=== PATIENT | female | born 1965 | race Caucasian/White ===

== ENCOUNTER 2020-03-15 13:28 | Emergency (ER) | payer BC, OTHER ==
--- NOTE | 2020-03-15 14:02 | UC ---
Telehealth HPI HPI Summary: 55 y/o female with cold symptoms over past 7 days dry cough , nasal congestion , chills, she has improved for the past 2 days and is asymptomatic requesting a note to go back to work no chest pain / no sob UC Telehealth PMH Previously Healthy: Yes Endocrine/Hematology History: Denies: Hx Diabetes Cardiovascular History: Denies: Hx Hypertension, Hx Pacemaker/ICD History: Denies: Hx Renal Disease Sensory History: Denies: Hx Hearing Aid Psychiatric History: Denies: Hx Panic Disorder - Surgical History Surgery Procedure, Year, and Place: tubal ligation. BILATERAL BREAST BIOPSIES - Family History Known Family History: Positive: Hypertension - Social History Alcohol Use: Daily Substance Use Type: Reports: None Smoking Status (MU): Light Every Day Tobacco [facility] All Other Systems Reviewed And Are Negative: Yes Positive: Chills, Fatigue. Negative: Fever Eyes: Negative Positive: Nasal Discharge. Negative: Sore Throat Cardiovascular: Negative Negative: Palpitations, Chest Pain Positive: Cough. Negative: Shortness Of Breath Telehealth PE Telehealth Physical Exam: no physical exam / no vitals since the pt. was no physically seen Appearance: Positive: Well-Appearing, No Pain Distress, Well-Nourished [facility] Course/Dx Provider Diagnoses: Viral illness [facility] Disposition Provider Recommendation for Treatment: Urgent Care Telehealth Visit: Patient Consented Verbally to Telehealth Visit Telehealth Patient Statement: The patient should understand that they are communicating with their provider via a secure communication platform and that all the same privacy and confidentiality rules apply. They will also be responsible for copayments or coinsurances that apply to any Telehealth visit. Patient Identifiers: 2 Patient Identifiers Verified for Telehealth Visit Telehealth Visit Start Time: 13:40 Telehealth Visit End Time: 14:00 Telehealth Provider Attestation: The above services were appropriate to provide in a Telehealth setting.
== END 2020-03-15 14:24 | disposition home or self-care (01) ==
LOC: UCCORT 13:28
DX: B34.9 Viral infection, unspecified (principal); Z20.828 Contact with and (suspected) exposure to other viral communicable diseases; F17.200 Nicotine dependence, unspecified, uncomplicated
CPT/HCPCS: 87635; 99211; G0463; G2023; Q3014